=== PATIENT | male | born 2005 | race Caucasian/White ===

== ENCOUNTER 2023-11-03 18:59 | Emergency (ER) | payer BC, OTHER ==
[2023-11-03 19:13] VITALS: BP 113/63; PULSE 65; RESP 18; TEMP 97.9; BMI 21.1
== END 2023-11-03 22:35 | disposition home or self-care (01) ==
LOC: JERFT 18:59
DX: M25.562 Pain in left knee (principal)
CPT/HCPCS: 73562-TC-LT-FY; 99283-25